=== PATIENT | female | born 1960 | race Hispanic/Latino ===

== ENCOUNTER 2021-10-16 05:35 | Day surgery (SDC) | payer BC ==
[2021-10-15 12:26] VITALS: BP 127/79
[2021-10-15 12:58] LABS: BASOPHILS % (AUTO) 0.2 % (0.0-5.0); EOSINOPHILS % (AUTO) 2.7 % (0.0-8.0); HEMATOCRIT 44.3 % (36-48); LYMPHOCYTES % (AUTO) 32.3 % (21.0-51.0); MEAN CORPUSCULAR HEMOGLOBIN 27.9 pg (27.0-33.0); MEAN CORPUSCULAR HGB CONC 32.5 g/dL (32.0-36.0); MEAN CORPUSCULAR VOLUME 85.9 fL (79-99); MONOCYTES % (AUTO) 3.6 % (3.0-13.0); PLATELET COUNT (AUTO) 306 K/uL (130-400); RED BLOOD CELL COUNT(AUTO) 5.16 MIL/uL (4.00-5.50); RED CELL DISTRIBUTION WIDTH 12.2 % (11.0-15.5); WHITE BLOOD COUNT (AUTO) 4.5 K/uL (4.8-10.8)
[2021-10-15 13:17] LABS: CREATININE 0.6 mg/dL (0.5-1.5); POTASSIUM 3.9 mmol/L (3.5-5.1)
[2021-10-16] VITALS (14 sets, daily range): BP systolic 123–151; BP diastolic 69–90
[~2021-10-16] VITALS: Ht 167.6 cm; Wt 77.8 kg
[~2021-10-16 05:35] MED LIST: ALEN70TA2 PO
[2021-10-16] MEDS ORDERED: 0.9%NACL 1000ML 1,000 ML IV SCH (08:00)
[2021-10-16] MEDS ORDERED: CEFAZOLIN SODIUM 1 GM VIAL IVP ONE (08:00)
[2021-10-16] MEDS ORDERED: KETAMINE 50MG/ML SYRINGE 50 MG/ML DISP.SYRIN IV ONE (08:01)
[2021-10-16] MEDS ORDERED: MIDAZOLAM HCL 1 MG/ML 2ML VIAL ONE (08:02)
[2021-10-16] MEDS ORDERED: BUPIVACAINE/PF 0.5% 30ML VIAL ONE (08:15)
[2021-10-16] MEDS ORDERED: LIDOCAINE HCL 1% MDV 50ML VIAL ONE (08:16)
[2021-10-16] MEDS ORDERED: PROPOFOL 10 MG/ML 20ML VIAL IV ONE (08:16)
[2021-10-16] MEDS ORDERED: MEPERIDINE-PF 25 MG/ML SYG ONE (09:16)
== END 2021-10-16 10:30 | disposition home or self-care (01) ==
LOC: DAH 05:35
PROVIDERS: ATTEND Student in an Organized Health Care Education/Training Program
DX: R22.2 Localized swelling, mass and lump, trunk (principal); L72.3 Sebaceous cyst; L72.0 Epidermal cyst; Z98.890 Other specified postprocedural states; Z90.49 Acquired absence of other specified parts of digestive tract
CPT/HCPCS: 21931; 36415; 80048; 85025; 87635; A4215; A4221; A4222; A4223; A4663; A4930; C9803; G0168; J0690; J2175; J2250; J2704; J3490 ×3; J7030